=== PATIENT | male | born 1985 | race Caucasian/White ===

== ENCOUNTER 2020-10-02 10:33 | Emergency (ER) | payer OTHER ==
[~2020-10-02] VITALS: Ht 172.7 cm; Wt 81.7 kg
[2020-10-02] MEDS ORDERED: FLEXERIL PO (12:59)
[2020-10-02] MEDS ORDERED: IBUPROFEN 800800 M1 PO (12:59)
[2020-10-02 13:05] VITALS: BP 117/73
== END 2020-10-02 13:05 | disposition home or self-care (01) ==
LOC: ER 10:33
DX: S39.012A Strain of muscle, fascia and tendon of lower back, initial encounter (principal); V49.88XA Car occupant (driver) (passenger) injured in other specified transport accidents, initial encounter; Y93.89 Activity, other specified; Y92.413 State road as the place of occurrence of the external cause; Y99.9 Unspecified external cause status